=== PATIENT | female | born 1965 | race Caucasian/White ===

== ENCOUNTER → 2016-12-19 | Outpatient (CLI) | payer MEDICAID, OTHER ==
[~2016-12-19] MED LIST: ASPI-621 PO; CARI350T PO; LISI5TAB7 PO; MORP30TA81 PO; OXYC-229 PO; PRAV20TA2 PO; RANITIDINE; ZOLP10TA PO
[2016-12-19 13:17] LABS: PATH.CAST-FLAG NOT PRESENT; SPERM-FLAG NOT PRESENT; SRC-FLAG NOT PRESENT; XTAL-FLAG NOT PRESENT; YLC-FLAG NOT PRESENT
[2016-12-19 13:19] LABS: BLOOD UREA NITROGEN 8 mg/dL (7-18)
[2016-12-19 13:23] LABS: ASPARTATE AMINO TRANSFERASE 8 U/L (15-37)
== END | disposition home or self-care (01) ==
LOC: STAR 12:22
PROVIDERS: ATTEND Neurological Surgery
DX: Z01.818 Encounter for other preprocedural examination (principal); M50.322 Other cervical disc degeneration at C5-C6 level; M50.323 Other cervical disc degeneration at C6-C7 level; M43.12 Spondylolisthesis, cervical region; M40.292 Other kyphosis, cervical region; I10 Essential (primary) hypertension; R79.1 Abnormal coagulation profile; Z87.891 Personal history of nicotine dependence
CPT/HCPCS: 36415; 71020; 72050; 80053; 81001; 85025; 85610; 85730; 93005

== ENCOUNTER 2018-08-16 13:32 | Emergency (ER) | payer MEDICAID ==
[~2018-08-16] VITALS: Ht 170.2 cm; Wt 60.0 kg
[~2018-08-16 13:32] MED LIST changes: -ASPI-621 PO; +ASPI81TA45 PO; +GABA-827 PO; -OXYC-229 PO; +OXYC-307 PO; +OXYC-432 PO
--- NOTE | 2018-08-16 14:08 | NUR ---
FIRST CONTACT WITH PATIENT, C/O LOW BACK PAIN RADIATING TO RT LEG, HX OF SCOLIOSIS. PATIENT TAKING PAIN PRESCRIBED MEDICATIONS THAT ARE NOT HELPING. PATIENT TEARFUL, CALM, SITTING IN [facility]. AWAITING MD ORDERS, CALL LIGHT WITHIN REACH.
[2018-08-16] MEDS ORDERED: OXYCODONE (14:12)
[2018-08-16] MEDS ORDERED: GABA-827 PO (14:12)
[2018-08-16] MEDS ORDERED: RANI-448 PO (14:13)
[2018-08-16] MEDS ORDERED: KETAMINE 100 MG/ML, 5ML IV ONE (14:30)
[2018-08-16] MEDS ORDERED: KETAMINE 10 MG/ML, 20ML ONE (14:42)
[2018-08-16 14:49] LABS: BASOPHILS # (AUTO) 0.05 x10^3/uL (0-0.1); BASOPHILS % (AUTO) 1 % (0-1); EOSINOPHILS # (AUTO) 0.12 x10^3/uL (0-0.4); EOSINOPHILS % (AUTO) 2 % (1-7); LYMPHOCYTES # (AUTO) 1.88 x10^3/uL (1-3.4); LYMPHOCYTES % (AUTO) 25 % (22-44); MD NO; MEAN CORPUSCULAR HEMOGLOBIN 32.8 pg (27.0-34.8); MEAN CORPUSCULAR HGB CONC 33.6 g/dL (32.4-35.8); MEAN CORPUSCULAR VOLUME 97.7 fL (80-100); MEAN PLATELET VOLUME 7.8 fL (7.4-10.4); MONOCYTES # (AUTO) 0.32 x10^3/uL (0.2-0.8); MONOCYTES % (AUTO) 4 % (2-9); NEUTROPHILS # (AUTO) 5.05 x10^3/uL (1.8-6.8); NEUTROPHILS % (AUTO) 68 % (42-75); PLATELET COUNT 228 x10^3/uL (130-400); RED BLOOD COUNT 5.11 x10^6/uL (3.82-5.3); RED CELL DISTRIBUTION WIDTH 13.1 % (9.6-15.2)
--- NOTE | 2018-08-16 14:56 | NUR ---
PATIENT TO MRI VIA [facility] AT THIS TIME, [facility]. [facility]+[id number]. AWAITING PAIN MEDS POST MRI TO MONITOR PATIENT POST MEDICATIONS. PATIENT AWARE.
[2018-08-16 15:01] LABS: ALBUMIN 3.4 g/dL (3.4-5.0); ANION GAP 4 mmol/L (5-15); CALCIUM 8.4 mg/dL (8.5-10.1); CREATININE 0.61 mg/dL (0.55-1.02)
[2018-08-16 15:06] LABS: CHLORIDE 110 mmol/L (98-107)
[2018-08-16 16:57] VITALS: BP 125/74
--- NOTE | 2018-08-16 16:59 | NUR ---
Patient/Caregiver given discharge instructions and they have confirmed that they understand the instructions. Patient ambulatory with steady gait. Patient to have family drive patient home for safe DC.
== END 2018-08-16 17:00 | disposition home or self-care (01) ==
LOC: ED 14:51
DX: M54.16 Radiculopathy, lumbar region (principal)
CPT/HCPCS: 36415; 72148; 80048; 82040; 85025; 96374